=== PATIENT | female | born 1960 | race Caucasian/White ===

== ENCOUNTER 2017-07-01 01:32 | Emergency (ER) | payer OTHER | END 2017-07-01 02:18 | disposition home or self-care (01) | LOC: D.ER 01:32 | DX: S61.412A Laceration without foreign body of left hand, initial encounter (principal); W26.0XXA Contact with knife, initial encounter; Y93.89 Activity, other specified; Y92.019 Unspecified place in single-family (private) house as the place of occurrence of the external cause ==

== ENCOUNTER 2019-04-22 14:28 | Emergency (ER) | payer OTHER ==
[~2019-04-22] VITALS: Ht 175.3 cm; Wt 95.9 kg
[2019-04-22 14:53] VITALS: BP 127/75; Ht 175.3 cm; Wt 95.9 kg
[2019-04-22] MEDS ORDERED: BUPROPION HCL200 M1 PO (14:57)
[2019-04-22] MEDS ORDERED: TRAZODONE HCL150 MG PO (14:57)
[2019-04-22] MEDS ORDERED: XANAX0.5 MG PO (14:57)
[2019-04-22] MEDS ORDERED: EFFEXOR100 MG PO (15:22)
[2019-04-22] MEDS ORDERED: SCOT-TUSSI10 MG/5 ML PO (16:24)
[2019-04-22] MEDS ORDERED: ZPAK PO (16:24)
== END 2019-04-22 17:07 | disposition home or self-care (01) ==
LOC: D.ER 14:28
DX: J06.9 Acute upper respiratory infection, unspecified (principal)